=== PATIENT | female | born 1960 | race Two or more races ===

== ENCOUNTER 2022-10-19 18:44 | Emergency (ER) | payer OTHER ==
[~2022-10-19] VITALS: Ht 167.6 cm; Wt 99.8 kg
[2022-10-19] MEDS ORDERED: NEXIUM2.5 MG PO (18:50)
[2022-10-19] MEDS ORDERED: ALLEGRA ALLERGY60 MG PO (18:50)
== END 2022-10-19 20:48 | disposition home or self-care (01) ==
LOC: ER 18:44
DX: M25.562 Pain in left knee (principal); Z88.8 Allergy status to other drugs, medicaments and biological substances; Z91.040 Latex allergy status